=== PATIENT | female | born 1965 | race Caucasian/White ===

== ENCOUNTER → 2017-11-23 | Outpatient (REF) | payer OTHER | LOC: M SFHCWAGY 08:40 | DX: Z12.4 Encounter for screening for malignant neoplasm of cervix (principal) ==

== ENCOUNTER → 2017-11-23 | Outpatient (CLI) | payer BC | LOC: M WHC 08:06 | DX: Z12.31 Encounter for screening mammogram for malignant neoplasm of breast (principal); Z80.3 Family history of malignant neoplasm of breast; Z85.828 Personal history of other malignant neoplasm of skin; Z87.898 Personal history of other specified conditions | CPT/HCPCS: G0202 ==

== ENCOUNTER → 2018-01-07 | Day surgery (SDC) | payer BC, OTHER ==
[~2018-01-07] MED LIST: PROPOFOL 200 MG/20 ML VIAL As Ordered
[2018-01-07] MEDS: NS 1,000 ML IV (10:56)
== END | disposition home or self-care (01) ==
LOC: M OPP 10:38
DX: Z12.11 Encounter for screening for malignant neoplasm of colon (principal); D12.2 Benign neoplasm of ascending colon; Z85.828 Personal history of other malignant neoplasm of skin
CPT/HCPCS: 45385

== ENCOUNTER → 2018-05-27 | Outpatient (CLI) | payer BC, OTHER ==
[~2018-05-27] MED LIST changes: +PROHANCE 279.3MG/ML 15ML VIAL (A9576) As Ordered; -PROPOFOL 200 MG/20 ML VIAL As Ordered
== END ==
LOC: M RAD 07:59
DX: Z12.31 Encounter for screening mammogram for malignant neoplasm of breast (principal)
CPT/HCPCS: A9576

== ENCOUNTER → 2019-08-01 | Outpatient (REF) | payer OTHER ==
[2019-08-07 00:07] LABS: HPV HYBRID CAPTURE II Negative (Negative)
== END ==
LOC: M SFHCWAGY 08:35
PROVIDERS: ATTEND Nurse Practitioner Family
DX: Z12.4 Encounter for screening for malignant neoplasm of cervix (principal)

== ENCOUNTER 2024-07-25 07:31 | Day surgery (SDC) | payer BC ==
[~2024-07-25] VITALS: Ht 160 cm; Wt 59.4 kg
[~2024-07-25 07:31] MED LIST changes: -PROHANCE 279.3MG/ML 15ML VIAL (A9576) As Ordered; +[UNRECOGNIZED DRUG - OTHER] PO
[2024-07-25] MEDS: NS 1,000 ML IV ONE (07:51)
[2024-07-25] MEDS ORDERED: LIDOCAINE 2% 100MG/5ML SDV (FOR ANES.) As Ordered ONE (08:45)
[2024-07-25] MEDS ORDERED: propofoL 200 MG/20 ML VIAL As Ordered ONE (08:45)
[2024-07-25 09:52] VITALS: BP 109/71; TEMP 97.2; O2SAT 99
== END 2024-07-25 10:02 | disposition home or self-care (01) ==
LOC: M OPP 07:31
PROVIDERS: ATTEND Internal Medicine Gastroenterology
DX: Z12.11 Encounter for screening for malignant neoplasm of colon (principal); Z86.010 Personal history of colon polyps; K57.30 Diverticulosis of large intestine without perforation or abscess without bleeding